=== PATIENT | male | born 1995 | race Two or more races ===

== ENCOUNTER 2019-11-26 10:41 | Emergency (ER) | payer BC, MEDICAID ==
[~2019-11-26] VITALS: Ht 188 cm; Wt 103.7 kg
[2019-11-26] MEDS ORDERED: HYDROCODONE/ACETAMINOPHEN 5/325MG TABLET PO ONE (11:00)
[2019-11-26 11:08] VITALS: BP 138/88
== END 2019-11-26 12:26 | disposition home or self-care (01) ==
LOC: ER 10:41
DX: S62.397A Other fracture of fifth metacarpal bone, left hand, initial encounter for closed fracture (principal); I10 Essential (primary) hypertension; W10.8XXA Fall (on) (from) other stairs and steps, initial encounter; Y93.89 Activity, other specified; Y92.018 Other place in single-family (private) house as the place of occurrence of the external cause
CPT/HCPCS: 29130; 73130; 99283